=== PATIENT | female | born 1965 | race Caucasian/White ===

== ENCOUNTER → 2024-02-10 08:18 | Outpatient (REF) | payer OTHER, SELFPAY | LOC: HWRAD 08:18 | PROVIDERS: ATTENDING PHYSICIAN Nurse Practitioner Family | DX: Z13.820 Encounter for screening for osteoporosis (principal) | CPT/HCPCS: 77080 ==

== ENCOUNTER → 2024-02-15 15:10 | Outpatient (REF) | payer OTHER, SELFPAY | LOC: HWWDC 15:10 | PROVIDERS: ATTENDING PHYSICIAN Nurse Practitioner Family | DX: Z12.31 Encounter for screening mammogram for malignant neoplasm of breast (principal) | CPT/HCPCS: 77063; 77067 ==

== ENCOUNTER → 2024-03-17 10:58 | Outpatient (REF) | payer OTHER, SELFPAY | LOC: MRI 3T 10:58 | PROVIDERS: ATTENDING PHYSICIAN Orthopaedic Surgery; FAMILY PHYSICIAN Nurse Practitioner Family | DX: M17.0 Bilateral primary osteoarthritis of knee (principal) | CPT/HCPCS: 73721 ==

== ENCOUNTER → 2025-02-22 14:59 | Outpatient (REF) | payer OTHER, SELFPAY | LOC: HWWDC 14:59 | PROVIDERS: ATTENDING PHYSICIAN Nurse Practitioner Family | DX: Z12.31 Encounter for screening mammogram for malignant neoplasm of breast (principal) | CPT/HCPCS: 77063; 77067 ==